=== PATIENT | female | born 1980 | race Caucasian/White ===

== ENCOUNTER 2020-04-07 08:05 | Outpatient (REF) | payer OTHER, SELFPAY | END 2020-04-07 08:06 | disposition home or self-care (01) | LOC: HO.LAB 08:05 | PROVIDERS: Visit Provider Internal Medicine | DX: Z20.828 Contact with and (suspected) exposure to other viral communicable diseases (principal) | CPT/HCPCS: C9803; U0003 ==

== ENCOUNTER 2022-04-15 15:57 | Emergency (ER) | payer OTHER, SELFPAY ==
--- NOTE | 2022-04-15 16:23 | ED_ITS ---
HPI - Skin/Abscess/Foreign Bdy General Chief complaint: Skin/Abscess/Foreign Body Stated complaint: ? shingles Time Seen by Provider: 04/15/22 16:29 Source: patient Mode of arrival: ambulatory Limitations: no limitations History of Present Illness HPI narrative: Patient is a 41 y.o. female who presents to the ED for evaluation of a painful rash to right abdomen and back. First onset with pain 3 days ago, the following day she noticed a rash. Denies fevers, chills, additional rashes or lesions, chest pain, shortness of breath, headache. Related Data Previous Rx's Medication Instructions Recorded valacyclovir 1 gram tablet 1,000 mg PO TID 7 days #21 tabs 04/15/22 Allergies Allergy/AdvReac Type Severity Reaction Status Date / Time codeine Allergy Unknown ITCHING Unverified 02/05/20 18:43 [From TYLENOL-CODEINE #3] Codeine Phosphate Allergy Unknown Uncoded 06/25/19 00:00 Review of Systems Review of Systems: Skin: Rash as noted in HPI Yes all other systems are reviewed and are negative [facility] Past Medical History Attestation statement: The following information was validated with the patient. Source: old records reviewed Social History Social History Advance Directives: No Advance Directives Information Provided: No Physical Exam Vital Signs: Vital Signs: Last Vital Signs Temp 98.7 F 04/15/22 16:26 Pulse 97 04/15/22 16:26 Resp 16 04/15/22 16:26 BP 152/88 H 04/15/22 16:26 Pulse Ox 98 04/15/22 16:26 O2 Del Method 04/15/22 16:26 BMI result Body Mass Index 27.8 Appearance: Alert.?Oriented to person, place and time. No acute distress.?Normal affect. Neck: Normal inspection.? Neck supple.?? CVS: Heart sounds normal. Normal heart rate and rhythm.? Pulses normal.?? Respiratory: No respiratory distress.? Lung sounds clear to auscultation bilaterally?? Abdomen: Soft and non-tender.?? Skin: Skin warm and dry.? Normal skin color.? Vesicular eruption on erythematous base to right T10-T11 dermatome, pain with palpation. Does not cross midline Extremities: No lower extremity edema.? Neuro: Moves all extremities spontaneously. Sensation intact bilaterally. Ambulates with normal steady gait. Course Course Course Narrative: Patient is a 41 y.o. female who presents to the ED for evaluation of a painful rash to right abdomen and back. Pain preceding rash. Eruption consistent with herpes zoster. Discussed plan of care for discharge home, rest, staying well hydrated, valacyclovir. Discussed worsening signs and symptoms to return back to the emergency department for. All questions answered. Patient discharged in stable condition. Outpatient follow-up with primary care provider for persistent symptoms/ discuss zoster vaccination. MDM - Skin/Abscess/Foreign Bdy Medical Records Attestation: I reviewed the patient's medical records. Discharge Plan Discharge Clinical Impression: Herpes zoster Patient Disposition: Home, Self-Care Instructions: Shingles (ED) Additional Instructions: Be sure to get rest, stay well hydrated. Take valacyclovir as prescribed. You can take ibuprofen 200 mg, 3 tablets (600mg) every 6-8 hours as needed for pain, in addition to Tylenol 500 mg, 2 tablets (1,000mg) every 4-6 hours as needed for pain, but not to exceed 3 doses daily (3,000mg).? Return to emergency department any new or worsening symptoms or concerns. Follow-up with your primary care provider next week as needed for persistent symptoms. Speak with your primary care provider regarding shingles vaccine. Prescriptions: New valacyclovir 1 gram tablet 1,000 mg PO TID 7 Days Qty: 21 0RF Referrals: Physician,Unknown J [Primary Care Provider] - Stand Alone Forms: Work/School Release Interventions: ED Discharge Assessment Last Done: 04/15/22 16:41 Discharge Date/Time: 04/15/22 16:42
[2022-04-15 16:26] VITALS: BP 152/88; PULSE 97; RESP 16; TEMP 37.1; O2SAT 98; BMI 27.8
== END 2022-04-15 16:42 | disposition home or self-care (01) ==
PROVIDERS: Emergency Provider Emergency Medicine
DX: B02.9 Zoster without complications (principal)
CPT/HCPCS: 99282; 99283